=== PATIENT | male | born 1950 | race Caucasian/White ===

== ENCOUNTER 2017-12-10 04:58 | Inpatient (IN) | payer MEDICARE ==
[~2017-12-10] VITALS: Ht 172.7 cm; Wt 126.7 kg
--- NOTE | ~2017-12-10 | EC ---
PATIENT:JEROME JUAREZ DATE OF SERVICE: 12/11/17 SEX: M MEDICAL RECORD: [id number] DATE OF : 46 LOCATION:D.M2 D.211 AGE OF PATIENT: 67 ADMISSION DATE: 12/11/17 REFERRING PHYSICIAN: INTERPRETING PHYSICIAN: TOREY WEBB MD ECHOCARDIOGRAM REPORT ECHO CHARGES 4 ECHO COMPLETE Date: 12/10 CLINICAL DIAGNOSIS: CHF ECHOCARDIOGRAPHIC MEASUREMENTS (adult normal given) AC root (d.<3.7cm) 4.3 cm LV Septum d (<1.2 cm> 1.7 cm Valve Excursion 2.2 cm LV Septum (systole) 2.3 cm Left Atria (s.<4.0cm> 5.1 cm LVPW d(<1.2cm) 1.7 cm RV (d.<2.3cm) 4.3 cm LVPW (sytole) 1.8 cm LV diastole(<5.6CM) 4.3 cm MV E-F(>70mm/sec) cm LV systole 3.0 cm LVOT Diameter 2.0 cm MV exc.(>10mm) 1.6 cm Est.ejection fraction (50-75%) % DOPPLER: LVIT cm/sec A 55.0 cm/sec E 97.0 cm/sec LA cm/sec RVSP 35 mmHg LVOT 85 cm/sec AOP1/2T m/s Asc. Ao 111 cm/sec RVOT cm/sec RA cm/sec PA cm/sec AV Gradient Peak 4.94 mmHg AV Mean 2.31 mmHg AV Area 3.4 cm MV Gradient Peak mmHg MV Mean mmHg MV Area cm COMMENTS: Bank Credit Card Collection Clerk: 2 FEDERICO MACDONALD Pockets And Pieces Necktie Operator: 4 Dr. Webb TAPE# PACS Pericardial Effusion N DATE OF SERVICE: PROCEDURE: Transthoracic echocardiogram. FINDINGS: 1. Left ventricle was difficult to visualize. The overall function appears to be preserved 55% to 60%. There is left ventricular hypertrophy. Inflow characteristics are unable to be processed because of atrial fibrillation. 2. The left atrium is severely dilated. 3. The aortic valve is grossly normal. ECHOCARDIOGRAM REPORT [id number] JEROME JUAREZ 4. There is mitral annular calcification. Mitral valve overall appears to be structurally normal. There is no evidence of significant mitral regurgitation. 5. The right atrium and the right ventricle are mildly dilated. There is pacer artifact seen through. This is overall a very difficult echocardiogram. There are no gross abnormalities on valvular functional status. TRANSINT:[id number] Voice Confirmation ID: [id number] DOCUMENT ID: [id number] TOREY WEBB MD at 1029 CC: [id number] DICTATION DATE: 12/14/17 0739 RETURNER: 12/14/17 0920 DIS IN 12/13/17 [place] [id number] [place] [id number]
--- NOTE | ~2017-12-10 | HEMODYNAMI ---
PATIENT:JEROME JUAREZ MEDICAL RECORD: [id number] : 46 LOCATION:[address] ADMISSION DATE: 12/11/17 Generatedon:12/12/20178:20 Patient name: JEROME JUAREZ Patient #: [id number] SSN: : 1950 Date of study: 12/12/2017 Page: Of Hemodynamic Procedure Report Patient Data Patient Demographics Procedure consent was obtained First Name: JEROME Gender: Male Last Name: LARRY : 1950 Patient #: [id number] Age: 67 year(s) Race: Unknown Additional ID: [id number] Contact details Address: [address] [place] [address] State: [place] City: [facility] Zip code: [address] Past Medical History Allergies Allergen Reaction Date Comments Reported Other allergy 12/12/2017 Lasix Admission Admission Data Admission Date: 12/11/2017 Admission Time: 15:52 Room #: 2115 Procedure Procedure Types Cath Procedure Diagnostic Procedure LHC [facility] w/Coronaries Sedation Charges Moderate Sedation up to 15 minutes PCI Procedure Coronary Stent Coronary Stent Initial Procedure Description Procedure Date Procedure Date: 12/12/2017 Procedure Start Time: 7:47 Procedure End Time: 8:19 Procedure Staff Name Function Gasper Stanley MD Performing Physician Rekha Joseph RT Monitor Michael Pratt RN Nurse Bronwyn Aj RT Scrub Procedure Data Cath Procedure Fluoroscopy Diagnostic fluoroscopy Total fluoroscopy Time: time: 10.6 min 10.6 min Diagnostic fluoroscopy Total fluoroscopy dose: dose: 2215 mGy 2215 mGy Contrast Material Contrast Material Type Amount (ml) Isovue 370 95 Entry Location Entry Primary Successful Side Size Upsize Upsize Entry Closure Pascal ccessful Closure Location (Fr) 1 (Fr) 2 (Fr) Remarks Device Remarks Radial Right 6 Fr Mechanical artery Short Compression Estimated blood loss: 10 ml Diagnostic catheters Device Type Used For End Catheter Placement DIAGNOSTIC Mario 110cm Right Coronary 5Fr catheter ([id number]) Angiography DIAGNOSTIC [place] 110cm 5 Left Coronary Fr catheter ([id number]) Angiography Procedure Complications No complications Procedure Medications Medication Administration Route Dosage 0.9% NaCl I.V. 100 ml/hr Oxygen etCO2 Nasal cannula 2 l/min Heparin Flush Bag added to field 2 bags (1000units/500ml NS) Lidocaine 2% added to field 20 Radial Cocktail added to field 1 syringe (Verapomil 2mg/Nitro 400mcg/Heparin 1500units) Versed I.V. 1 mg Fentanyl I.V. 50 mcg Radial Cocktail I.A. 1 syringe (Verapomil 2mg/Nitro 400mcg/Heparin 1500units) Angiomax (bolus) I.V. 19 ml Angiomax Drip I.V. drip 44 ml/hr (250mg/50ml NS) (Standard) Angiomax Drip I.V. drip 44 ml/hr (250mg/50ml NS) (Standard) Plavix P.O. 300 mg Hemodynamics Rest Heart Rate: 60 (bpm) Snapshots Pre Cath Intra NCS Post Cath Vital Signs Time Heart Resp SPO2 etCO2 NIBP (mmHg) Rhythm Pain Sedation Rate (ipm) (%) (mmHg) Status Level (bpm) 7:40:34 60 16 100 46.9 135/79(112) Paced 0 (11) 10(A) , No pain 7:45:19 60 16 97 48.4 126/70(97) Paced 0 (11) 10(A) , No pain 7:50:02 60 13 96 26.8 74/35(54) Paced 0 (11) 10(A) , No pain 7:54:44 60 12 92 32 121/70(96) Paced 0 (11) 10(A) , No pain 7:59:27 60 13 91 43.2 137/73(92) Paced 0 (11) 10(A) , No pain 8:04:10 60 13 92 49.9 129/77(100) Paced 0 (11) 9(A) , No pain 8:08:54 60 13 93 38.7 122/73(95) Paced 0 (11) 9(A) , No pain 8:13:37 60 13 95 48.4 117/70(94) Paced 0 (11) 9(A) , No pain 8:18:17 60 14 94 46.2 122/74(100) Paced 0 (11) 10(A) , No pain Medications Time Medication Route Dose Verified Delivered Reason Note s Effectiveness by by 7:39:51 0.9% NaCl I.V. 100 Michael Michael Per physician ml/hr Santa Pratt RN RN 7:39:59 Oxygen etCO2 2 l/min Michael Michael Per physician Nasal Santa Pratt cannula RN RN 7:40:12 Heparin Flush added 2 bags Michael Michael used for Bag to Lorigan Santa procedure (1000units/500ml field RN RN NS) 7:40:22 Lidocaine 2% added 20ml Michael Michael for local to vial Lorigan Lorigan anesthetic field RN RN 7:40:38 Radial Cocktail added 1 Michael Michael used for (Verapomil to syringe Lorigan Lorigan procedure 2mg/Nitro field RN RN 400mcg/Heparin 1500units) 7:45:22 Versed I.V. 1 mg Michael Michael for sedation Santa Pratt RN RN 7:45:32 Fentanyl I.V. 50 mcg Michael Michael for sedation Santa Pratt RN RN 7:47:58 Radial Cocktail I.A. 1 Michael Gasper for (Verapomil syringe Santa Norred MD vasodilation 2mg/Nitro RN 400mcg/Heparin 1500units) 8:07:15 Angiomax (bolus) I.V. 19 ml Michael Michael for Lorigan Lorigan anticoagulation RN RN 8:07:32 Angiomax Drip I.V. 44 Michael Michael for (250mg/50ml NS) drip ml/hr Lorigan Lorvictorino anticoagulation (Standard) RN RN 8:15:19 Angiomax Drip I.V. 44 Michael Michael to sharp's (250mg/50ml NS) drip ml/hr Lorigan Lorigan (Standard) RN RN 8:19:05 Plavix P.O. 300 mg Michael Michael for Santa Pratt antiplatelet RN RN therapy Procedure Log Time Note 7:20:31 Bronwyn Aj RT(R) sent for patient. Start room use. 7:20:33 Time tracking: Regular hours (M-F 7:00 - 5:00) 7:20:37 Plan of Care:Hemodynamics will remain stable., Cardiac rhythm will remain stable., Comfort level will be maintained., Respiratory function will remain adequate., Patient/ family verbilizes understanding of procedure., Procedure tolerated without complication., Recovers from procedure without complications.. 7:30:11 Patient received from PCU to CCL 1 Alert and oriented. Tansferred to table in Supine position. 7:30:12 Warm blankets applied, and tavia hugger turned on for patient comfort. 7:30:13 Correct patient and procedure confirmed by team. 7:30:14 Signed procedure consent form obtained from patient. 7:30:15 ECG and BP/O2 sat monitors applied to patient. 7:30:16 Full Disclosure recording started 7:39:35 Vital chart was started 7:39:51 0.9% NaCl 100 ml/hr I.V. was administered by Michael Pratt RN; Per physician; 7:39:59 Oxygen 2 l/min etCO2 Nasal cannula was administered by Michael Pratt RN; Per physician; 7:40:12 Heparin Flush Bag (1000units/500ml NS) 2 bags added to field was administered by Michael Pratt RN; used for procedure; 7:40:22 Lidocaine 2% 20ml vial added to field was administered by Michael Pratt RN; for local anesthetic; 7:40:38 Radial Cocktail (Verapomil 2mg/Nitro 400mcg/Heparin 1500units) 1 syringe added to field was administered by Michael Pratt RN; used for procedure; 7:42:25 Baseline sample Acquired. 7:42:31 Rhythm: paced 7:42:47 H&P Date Dictated: 12/10/2017 Within 30 days and on chart.. 7:42:48 Pre-procedure instructions explained to patient. 7:42:49 Pre-op teaching completed and patient verbalized understanding. 7:42:51 Family in patients room. 7:42:53 Patient NPO since Midnight. 7:43:02 Patient allergic to Other allergyLasix 7:43:04 Is the patient allergic to Iodine/contrast media? No. 7:43:05 Is patient on blood thinner?Yes 7:43:08 ACC The patient was administered the following blood thiners within the last 24 hours: ACCAspirin, ACCPlavix 7:43:10 Patient diabetic? No. 7:43:35 Previous problem with sedation/anesthesia? No ? 7:43:36 Snore? Yes 7:43:37 Sleep apnea? No 7:43:38 Deviated septum? No 7:43:38 Opens mouth fully? Yes 7:43:39 Sticks out tongue? Yes 7:43:43 Airway obstruction? Yes COPD 7:43:46 Dentures? Yes In 7:43:49 Pre procedure: right dorsailis pedis pulse 2+ Normal; easily identifiable; not easily obliterated 7:43:53 Modified Patricio's test Ulnar < 7 seconds 7:43:55 Patient pain scale 0/10 ?. 7:44:10 IV patent on arrival in right forearm with 0.9% NaCl at [facility]. 7:44:13 Lab results completed and on chart. 7:44:18 Right Radial & Right Groin area was prepped with chlora-prep and draped in sterile fashion 7:44:19 Alarms reviewed by R. N. 7:44:19 Sharps counted by scrub and verified by R.N. 7:44:22 Use device set Radial Dx or PCI 7:44:24 ACIST Syringe (18919) opened to sterile field. 7:44:24 Medline Cath Pack ([id number]) opened to sterile field. 7:44:25 Bag Decanter (2002S) opened to sterile field. 7:44:25 DIAGNOSTIC WIRE .035 260cm J wire (442750) opened to sterile field. 7:44:26 ACIST Hand Control (01124) opened to sterile field. 7:44:26 ACIST Manifold (97511) opened to sterile field. 7:44:27 Tegaderm 4 x 4 (1626W) opened to sterile field. 7:44:27 MBrace Wrist Support ([id number]) opened to sterile field. 7:44:28 SHEATH 6Fr Prelude Radial ([id number]) opened to sterile field. 7:44:36 Final Timeout: patient, procedure, and site verified with staff and physician. All members of the team are in agreement. 7:44:39 Right Radial site verified by team. 7:44:44 Physical assessment completed. ASA score P 3 - A patient with severe systemic disease as per Gasper Stanley MD. 7:44:47 Sedation plan: IV Moderate Sedation Medication:Versed, Fentanyl 7:45:22 Versed 1 mg I.V. was administered by Michael Pratt RN; for sedation; 7:45:32 Fentanyl 50 mcg I.V. was administered by Michael Pratt RN; for sedation; 7:47:31 Procedure started. 7:47:34 Local anesthetic to right radial artery with Lidocaine 2% by Gasper Stanley MD.INITIAL ACCESS ONLY 7:47:43 A 6 Fr Short sheath was inserted into the Right Radial artery 7:47:58 Radial Cocktail (Verapomil 2mg/Nitro 400mcg/Heparin 1500units) 1 syringe I.A. was administered by Gasper Stanley MD; for vasodilation; 7:48:50 A DIAGNOSTIC Mario 110cm 5Fr catheter (430111) was advanced over the wire and used for Right Coronary Angiography. 7:52:33 Baseline sample Acquired. 7:56:57 Catheter removed. 7:57:02 A DIAGNOSTIC [place] 110cm 5 Fr catheter (675088) was advanced over the wire and used for Left Coronary Angiography. 8:00:42 Catheter removed. 8:00:59 Use device set NORRED PCI 8:01:07 INFLATOR Merit BasixCompak ([id number]) opened to sterile field. 8:01:08 COPILOT Valve Control (5566779) opened to sterile field. 8:01:09 BMW 190cm [place] 2 J wire ([id number]) opened to sterile field. 8:03:28 GUIDE 6FR AR 1.0 catheter ([id number]) opened to sterile field. 8:05:56 6 Fr AR 1.0 guide catheter was inserted over the wire 8:07:11 BMW wire advanced. 8:07:15 Angiomax (bolus) 19 ml I.V. was administered by Michael Pratt RN; for anticoagulation; 8:07:32 Angiomax Drip (250mg/50ml NS) (Standard) 44 ml/hr I.V. drip was administered by Michael Pratt RN; for anticoagulation; 8:12:53 Place stent Inflation Number: 1 A EVERARDO RX 3.0 x 22 stent ([id number]) was prepped and advanced across the R PDA. The stent was deployed at 15 CHERYL for 0:13 (min:sec). 8:13:19 Stent catheter was removed intact over wire. 8:13:20 Wire removed. 8:13:21 Guide catheter removed. 8:13:34 Sheath removed intact; hemostasis achieved with Mechanical Compression to the Right Radial artery. 8:13:36 Procedure ended.(Physican Out) 8:13:56 Fluoroscopy time 10.60 minutes. 8:14:02 Flurop Dose total: 2215 8:14:02 Fluoroscopy dose: 2215 mGy 8:14:09 Contrast amount:Isovue 370 95ml. 8:14:10 Sharps counted by scrub and verified by R.N. 8:14:13 TR band inflated with 13cc of air. 8:14:17 TR BAND Large ([id number]) opened to sterile field. 8:14:20 Insertion/operative site no bleeding no hematoma. 8:14:27 Post right radial artery:stable, clean and dry 8:14:29 Post Procedure Pulses reassessed and unchanged 8:14:44 Post procedure rhythm: unchanged. 8:14:47 Estimated blood loss: 10 ml 8:14:48 Post procedure instruction explained to patient.Patient verbalizes understanding. 8:14:49 Patient needs reinforcement of post procedure teaching. 8:14:55 Procedure type changed to Cath procedure, Diagnostic procedure, LHC, LHC w/Coronaries, Sedation Charges, Moderate Sedation up to 15 minutes, PCI procedure, Coronary Stent, Coronary Stent Initial 8:15:18 Procedure Complication : No complications 8:15:19 Angiomax Drip (250mg/50ml NS) (Standard) 44 ml/hr I.V. drip was administered by Michael Pratt RN; to sharp's; 8:15:56 See physician's report for complete and final results. 8:17:19 Procedure and supply charges have been captured, reviewed, submitted and are correct. 8:18:52 Vital chart was stopped 8:19:05 Plavix 300 mg P.O. was administered by Michael Pratt RN; for antiplatelet therapy; 8:19:23 Report given to PCU. 8:19:35 Patient transfered to PCU with Bed. 8:19:45 Procedure ended. 8:19:45 Full Disclosure recording stopped 8:19:50 End room use (Document Last) Intervention Summary Intervention Notes Time ActionType Lesion and Equipment Used Action# Pressure Duration Attributes 8:12:53 Place stent R PDA EVERARDO RX 3.0 x 1 15 00:13 22 stent ([id number]) Device Usage Item Name Manufacture Quantity Catalog Number Hospital Part Current Minimal Lot# / Charge Number Stock Stock Serial# Code ACIST Syringe Acist 1 19702 163309 049160 638450 20 (26140) [employer] Inc Medline Cath Cardinal 1 [id number] 057081 18049 340928 5 [facility] ([id number]) Bag Decanter Microtek 1 2001S 651053 15408 504368 5 (2001S) Medical Inc. DIAGNOSTIC WIRE [place] 1 247235 285955 219464 778672 30 .035 260cm J wire (118123) ACIST Hand Acist 1 99058 352603 244640 553486 5 Control (17305) [employer] Inc ACIST Manifold Acist 1 47656 046972 842652 305854 5 (78284) [employer] Inc Tegaderm 4 x 4 3M 1 1626W 322152 709812 039784 5 (1626W) MBrace Wrist Advanced 1 140-0250-00 117942 78118 525614 5 Support Vascular ([id number]) Dynamics SHEATH 6Fr Merit 1 [id number] 681864 888314 408880 5 Prelude Radial Medical ([id number]) DIAGNOSTIC Terumo 1 40-5023 262853 634691 045796 5 Mario 110cm 5Fr catheter (588976) DIAGNOSTIC Terumo 1 40-5013 265936 367597 014281 5 [place] 110cm 5 Fr catheter (072962) INFLATOR Merit Merit 1 [id number] 014002 899187 264097 15 [facility] ([id number]) COPILOT Valve Robison 1 1546830 621681 895101 421111 5 Control Vascular (9193449) BMW 190cm [place] 1 [id number] 875346 84192 213693 5 [place] 2 J Vascular wire (6086919Q) GUIDE 6FR AR Medtronic 1 [id number] 049991 95057 422091 1 1.0 catheter (PT3TX42) EVERARDO RX 3.0 x Medtronic 1 [id number] 811019 6787871 090179 5 [id number] 22 stent ([id number]) TR BAND Large Terumo 1 [id number] 568670 800601 757651 40 ([id number]) Signature Audit Freer Stage Time Signature Unsigned Intra-Procedure 12/12/2017 Rekha 8:19:59 AM Counts RT(R) Signatures Monitor : Rekha Signature : Counts RT Date : Time : [address] [place] [address]
[2017-12-10 05:53] LABS: BASOPHILS 0.2 % (0-2); EOSINOPHILS 1.3 % (0-7); HEMATOCRIT 46.9 % (42.0-54.0); HEMOGLOBIN 15.6 g/dL (13.5-17.5); IMMATURE GRANULOCYTES 0.2 % (0-5); LYMPHOCYTES 15.3 % (15-50); MCH 31.5 pg (26.0-34.0); MCHC 33.3 g/dL (31.0-37.0); MCV 94.7 fL (80.0-100.0); MEAN PLATELET VOLUME 10.3 fL (7.4-10.4); MONOCYTES 10.5 % (2-11); NEUTROPHILS 72.5 % (40-80); PLATELET COUNT 226 10x3/uL (130-400); RBC 4.95 10x6/uL (4.20-6.10); RDW 14.2 % (11.5-14.5); WBC 9.3 10x3/uL (4.8-10.8)
[2017-12-10 06:08] LABS: ALBUMIN 3.4 g/dL (3.4-5.0); ALKALINE PHOSPHATASE 104 U/L (46-116); ALT (SGPT) 27 U/L (10-68); BILIRUBIN - TOTAL 0.75 mg/dL (0.2-1.3); CALC OSMOLALITY 290 mosm/kg (275-300); CALCIUM 9.3 mg/dL (8.5-10.1); CARBON DIOXIDE 31.2 mmol/L (21.0-32.0); CHLORIDE - SERUM 104 mmol/L (98-107); CREATININE - SERUM 1.2 mg/dL (0.6-1.3); GLUCOSE 133 mg/dL (74-106); POTASSIUM - SERUM 3.4 mmol/L (3.5-5.1); PROTEIN - SERUM 7.5 g/dL (6.4-8.2); SODIUM 143 mmol/L (136-145); UREA NITROGEN 24 mg/dL (7-18); eGFR NON AFRICAN AMERICAN 64 mL/min (90-120)
[2017-12-10 06:26] LABS: CHOL - HDL RATIO 3.4 ratio (2.3-4.9); CHOLESTEROL, TOTAL 152 mg/dL (0-200); CKMB 1.8 U/L (0.0-3.6); CREATINE KINASE 53 UL (21-232); HDL CHOLESTEROL 45 mg/dL (32-96); LDL CHOLESTEROL 98 mg/dL (0-100); LDL-HDL RATIO 2.2 ratio (1.5-3.5); TRIGLYCERIDE 45 mg/dL (30-200); TROPONIN-I 0.058 ng/mL (0.000-0.060)
[2017-12-10 08:39] VITALS: BP 130/71; BMI 45.7
[2017-12-10 08:41] LABS: TROPONIN-I 0.059 ng/mL (0.000-0.060)
[2017-12-10] MEDS ORDERED: BUMEX 1 MG TAB1 MG PO (09:23)
[2017-12-10] MEDS ORDERED: COUMADIN1 MG PO (09:24)
[2017-12-10] MEDS ORDERED: COREG 3.1253.125 MG PO (09:24)
[2017-12-10] MEDS ORDERED: K-DUR20 MEQ PO (09:24)
[2017-12-10 09:25] VITALS: BP 137/76
[2017-12-10 11:29] LABS: TROPONIN-I 0.055 ng/mL (0.000-0.060)
[2017-12-10 12:37] VITALS: BP 132/63
[2017-12-10 15:25] LABS: INR 1.13 (0.85-1.17); PROTIME 14.1 SECONDS (11.6-15.0)
[2017-12-10 15:27] LABS: D-DIMER-QUANTITATIVE 2.22 ug/mLFEU (0.20-0.54)
[2017-12-10 17:32] VITALS: BP 136/70; BP 181/113
[2017-12-10 20:00] VITALS: BP 137/72
[2017-12-11 04:00] VITALS: BP 142/62
[2017-12-11 06:01] LABS: CALC OSMOLALITY 282 mosm/kg (275-300); CALCIUM 9.1 mg/dL (8.5-10.1); CARBON DIOXIDE 31.4 mmol/L (21.0-32.0); CHLORIDE - SERUM 101 mmol/L (98-107); CREATININE - SERUM 0.9 mg/dL (0.6-1.3); GLUCOSE 116 mg/dL (74-106); POTASSIUM - SERUM 3.6 mmol/L (3.5-5.1); SODIUM 140 mmol/L (136-145); UREA NITROGEN 21 mg/dL (7-18); eGFR NON AFRICAN AMERICAN 89 mL/min (90-120)
[2017-12-11 06:02] LABS: BASOPHILS 0.2 % (0-2); HEMATOCRIT 46.2 % (42.0-54.0); HEMOGLOBIN 15.3 g/dL (13.5-17.5); IMMATURE GRANULOCYTES 0.3 % (0-5); LYMPHOCYTES 18.5 % (15-50); MCH 31.5 pg (26.0-34.0); MCHC 33.1 g/dL (31.0-37.0); MCV 95.3 fL (80.0-100.0); MEAN PLATELET VOLUME 10.8 fL (7.4-10.4); MONOCYTES 8.6 % (2-11); NEUTROPHILS 71.4 % (40-80); PLATELET COUNT 218 10x3/uL (130-400); RBC 4.85 10x6/uL (4.20-6.10); RDW 14.1 % (11.5-14.5)
[2017-12-11 08:00] VITALS: BP 125/61
[2017-12-11 10:34] LABS: BASOPHILS 0.2 % (0-2); CALC OSMOLALITY 284 mosm/kg (275-300); CALCIUM 9.1 mg/dL (8.5-10.1); CARBON DIOXIDE 33.6 mmol/L (21.0-32.0); CHLORIDE - SERUM 100 mmol/L (98-107); CREATININE - SERUM 0.9 mg/dL (0.6-1.3); EOSINOPHILS 1.1 % (0-7); GLUCOSE 166 mg/dL (74-106); HEMATOCRIT 45.3 % (42.0-54.0); HEMOGLOBIN 15.1 g/dL (13.5-17.5); IMMATURE GRANULOCYTES 0.2 % (0-5); LYMPHOCYTES 13.9 % (15-50); MCH 31.9 pg (26.0-34.0); MCHC 33.3 g/dL (31.0-37.0); MCV 95.6 fL (80.0-100.0); MONOCYTES 8.3 % (2-11); NEUTROPHILS 76.3 % (40-80); PLATELET COUNT 190 10x3/uL (130-400); POTASSIUM - SERUM 3.2 mmol/L (3.5-5.1); RBC 4.74 10x6/uL (4.20-6.10); RDW 14.1 % (11.5-14.5); SODIUM 139 mmol/L (136-145); UREA NITROGEN 20 mg/dL (7-18); WBC 9.1 10x3/uL (4.8-10.8); eGFR NON AFRICAN AMERICAN 89 mL/min (90-120)
[2017-12-11 11:02] VITALS: BP 131/68
[2017-12-11 13:44] VITALS: Ht 172.7 cm; Wt 126.7 kg
[2017-12-11 15:31] VITALS: BP 129/64
[2017-12-11 20:24] VITALS: BP 133/71
[2017-12-12 06:14] VITALS: BP 155/77
[2017-12-12 06:40] LABS: BASOPHILS 0.2 % (0-2); EOSINOPHILS 1.4 % (0-7); HEMATOCRIT 45.5 % (42.0-54.0); HEMOGLOBIN 15.5 g/dL (13.5-17.5); IMMATURE GRANULOCYTES 0.3 % (0-5); LYMPHOCYTES 17.3 % (15-50); MCH 32.3 pg (26.0-34.0); MCHC 34.1 g/dL (31.0-37.0); MCV 94.8 fL (80.0-100.0); MEAN PLATELET VOLUME 10.9 fL (7.4-10.4); MONOCYTES 9.5 % (2-11); NEUTROPHILS 71.3 % (40-80); PLATELET COUNT 186 10x3/uL (130-400); WBC 9.3 10x3/uL (4.8-10.8)
[2017-12-12 06:49] LABS: CALC OSMOLALITY 280 mosm/kg (275-300); CALCIUM 9.2 mg/dL (8.5-10.1); CARBON DIOXIDE 33.3 mmol/L (21.0-32.0); CHLORIDE - SERUM 100 mmol/L (98-107); CREATININE - SERUM 0.9 mg/dL (0.6-1.3); SODIUM 139 mmol/L (136-145); UREA NITROGEN 17 mg/dL (7-18); eGFR NON AFRICAN AMERICAN 89 mL/min (90-120)
[2017-12-12 07:02] LABS: GLUCOSE 108 mg/dL (74-106)
[2017-12-12 07:51] VITALS: BP 115/57
[2017-12-12 10:25] VITALS: BP 123/73
[2017-12-12 15:30] VITALS: BP 136/89
[2017-12-12 15:31] VITALS: BP 122/64
[2017-12-12] MEDS ORDERED: PLAVIX75 MG PO (19:06)
[2017-12-12 20:31] VITALS: BP 102/54
[2017-12-13 04:00] VITALS: BP 130/49
[2017-12-13 05:43] VITALS: BP 134/68
[2017-12-13 06:24] LABS: BASOPHILS 0.2 % (0-2); EOSINOPHILS 1.8 % (0-7); HEMOGLOBIN 15.8 g/dL (13.5-17.5); IMMATURE GRANULOCYTES 0.1 % (0-5); LYMPHOCYTES 11.1 % (15-50); MCHC 33.6 g/dL (31.0-37.0); MCV 95.3 fL (80.0-100.0); MONOCYTES 10.9 % (2-11); NEUTROPHILS 75.9 % (40-80); PLATELET COUNT 201 10x3/uL (130-400); RBC 4.93 10x6/uL (4.20-6.10); RDW 14.2 % (11.5-14.5)
[2017-12-13 06:58] LABS: CALC OSMOLALITY 281 mosm/kg (275-300); CALCIUM 9.3 mg/dL (8.5-10.1); CARBON DIOXIDE 30.5 mmol/L (21.0-32.0); CHLORIDE - SERUM 100 mmol/L (98-107); CREATININE - SERUM 0.9 mg/dL (0.6-1.3); GLUCOSE 125 mg/dL (74-106); SODIUM 140 mmol/L (136-145); UREA NITROGEN 18 mg/dL (7-18); eGFR NON AFRICAN AMERICAN 89 mL/min (90-120)
[2017-12-13 07:13] LABS: POTASSIUM - SERUM 3.5 mmol/L (3.5-5.1)
[2017-12-13 07:44] VITALS: BP 133/67
[2017-12-13] MEDS ORDERED: BAYER CHEWABLE81 MG PO (11:16)
[2017-12-13] MEDS ORDERED: LIPITOR20 MG PO (11:16)
== END 2017-12-13 15:09 | disposition home or self-care (01) | DRG 246 ==
LOC: EDBD 04:58 → D.ER 04:58 → D.M2 06:58 → OBSVTIME 06:58 → D.M2 06:58 → D.SDCHOLD 12-13 10:55 → D.M2 12-13 10:55
PROVIDERS: Family Medicine; Internal Medicine Cardiovascular Disease; Internal Medicine Nephrology
PROC: B2111ZZ Fluoroscopy of Multiple Coronary Arteries using Low Osmolar Contrast (ICD-10-PCS; 2017-12-12)
PROC: B2151ZZ Fluoroscopy of Left Heart using Low Osmolar Contrast (ICD-10-PCS; 2017-12-12)
PROC: 027135Z Dilation of Coronary Artery, Two Arteries with Two Drug-eluting Intraluminal Devices, Percutaneous Approach (ICD-10-PCS; principal; 2017-12-12 13:00)
PROC: 4A023N7 Measurement of Cardiac Sampling and Pressure, Left Heart, Percutaneous Approach (ICD-10-PCS; 2017-12-12 13:00)
DX: I21.4 Non-ST elevation (NSTEMI) myocardial infarction (principal); I50.33 Acute on chronic diastolic (congestive) heart failure; I25.110 Atherosclerotic heart disease of native coronary artery with unstable angina pectoris; I11.0 Hypertensive heart disease with heart failure; E11.9 Type 2 diabetes mellitus without complications; J44.9 Chronic obstructive pulmonary disease, unspecified; K21.9 Gastro-esophageal reflux disease without esophagitis; I48.91 Unspecified atrial fibrillation; E87.6 Hypokalemia; Z95.0 Presence of cardiac pacemaker

== ENCOUNTER 2019-07-27 00:37 | Emergency (ER) | payer MEDICARE ==
[~2019-07-27] VITALS: Ht 172.7 cm; Wt 113.6 kg
[~2019-07-27 00:37] MED LIST: BAYER CHEWABLE81 MG PO; BUMEX 1 MG TAB1 MG PO; COREG 3.1253.125 MG PO; COUMADIN1 MG PO; K-DUR20 MEQ PO; LIPITOR20 MG PO; PLAVIX75 MG PO
[2019-07-27 00:40] VITALS: Ht 172.7 cm; Wt 113.6 kg
[2019-07-27 03:06] VITALS: BP 125/53
== END 2019-07-27 03:06 ==
LOC: D.ER 00:37
DX: S00.83XA Contusion of other part of head, initial encounter (principal); S40.011A Contusion of right shoulder, initial encounter; W06.XXXA Fall from bed, initial encounter; Y93.9 Activity, unspecified; Y92.9 Unspecified place or not applicable; E11.9 Type 2 diabetes mellitus without complications; Z95.0 Presence of cardiac pacemaker; I11.0 Hypertensive heart disease with heart failure; I50.9 Heart failure, unspecified

== ENCOUNTER → 2020-10-21 16:17 | Outpatient (CLI) | payer MEDICARE ==
[2019-07-27 00:40] VITALS: BMI 38.1
[2020-10-21 17:08] LABS: BILIRUBIN NEGATIVE (NEGATIVE); KETONE NEGATIVE (NEGATIVE); NITRITE NEGATIVE (NEGATIVE); UROBILINOGEN NORMAL mg/dL (< 2)
== END | disposition home or self-care (01) ==
LOC: D.LABREF 16:17
PROVIDERS: ATTEND Family Medicine
DX: R79.9 Abnormal finding of blood chemistry, unspecified (principal)

== ENCOUNTER → 2020-10-23 12:48 | Outpatient (CLI) | payer MEDICARE ==
[2019-07-27 00:40] VITALS: BMI 38.1
[2020-10-23 13:03] LABS: BASOPHILS 0.1 % (0-2); EOSINOPHILS 1.6 % (0-7); HEMATOCRIT 44.4 % (42.0-54.0); HEMOGLOBIN 14.5 g/dL (13.5-17.5); IMMATURE GRANULOCYTES 0.2 % (0-5); LYMPHOCYTE ABS# 1.27 10x3/uL (1.32-3.57); LYMPHOCYTES 10.7 % (15-50); MCH 30.9 pg (26.0-34.0); MCHC 32.7 g/dL (31.0-37.0); MCV 94.5 fL (80.0-100.0); MEAN PLATELET VOLUME 11.6 fL (7.4-10.4); MONOCYTES 5.6 % (2-11); NEUTROPHIL ABS# 9.72 10x3/uL (1.78-5.38); NEUTROPHILS 81.8 % (40-80); PLATELET COUNT 222 10x3/uL (130-400); WBC 11.9 10x3/uL (4.8-10.8)
[2020-10-23 13:28] LABS: CALC OSMOLALITY 290 mosm/kg (275-300); CALCIUM 8.7 mg/dL (8.5-10.1); CARBON DIOXIDE 30.3 mmol/L (21.0-32.0); CHLORIDE - SERUM 103 mmol/L (98-107); CREATININE - SERUM 0.7 mg/dL (0.6-1.3); GLUCOSE 94 mg/dL (74-106); POTASSIUM - SERUM 3.8 mmol/L (3.5-5.1); SODIUM 141 mmol/L (136-145); UREA NITROGEN 41 mg/dL (7-18); eGFR NON AFRICAN AMERICAN > 90 mL/min (90-120)
== END | disposition home or self-care (01) ==
LOC: D.LABREF 12:48
PROVIDERS: ATTEND Family Medicine
DX: R79.9 Abnormal finding of blood chemistry, unspecified (principal)

== ENCOUNTER 2020-11-27 19:49 | Emergency (ER) | payer MEDICARE ==
[2020-11-27 19:55] VITALS: Ht 172.7 cm
[2020-11-27 21:35] LABS: BASOPHILS 0.2 % (0-2); EOSINOPHILS 3.2 % (0-7); HEMOGLOBIN 10.8 g/dL (13.5-17.5); IMMATURE GRANULOCYTES 0.2 % (0-5); LYMPHOCYTE ABS# 1.66 10x3/uL (1.32-3.57); LYMPHOCYTES 19.5 % (15-50); MCH 31.4 pg (26.0-34.0); MCHC 31.8 g/dL (31.0-37.0); MCV 98.8 fL (80.0-100.0); MEAN PLATELET VOLUME 10.1 fL (7.4-10.4); MONOCYTES 9.3 % (2-11); NEUTROPHIL ABS# 5.77 10x3/uL (1.78-5.38); NEUTROPHILS 67.6 % (40-80); PLATELET COUNT 212 10x3/uL (130-400); RBC 3.44 10x6/uL (4.20-6.10); RDW 15.2 % (11.5-14.5); WBC 8.5 10x3/uL (4.8-10.8)
[2020-11-27 21:43] LABS: APTT 45.1 SECONDS (22.8-39.4); INR 2.24 (0.85-1.17)
[2020-11-27 21:46] LABS: CALC OSMOLALITY 287 mosm/kg (275-300); CALCIUM 8.5 mg/dL (8.5-10.1); CARBON DIOXIDE 31.6 mmol/L (21.0-32.0); CHLORIDE - SERUM 103 mmol/L (98-107); CREATININE - SERUM 0.8 mg/dL (0.6-1.3); GLUCOSE 128 mg/dL (74-106); POTASSIUM - SERUM 3.5 mmol/L (3.5-5.1); SODIUM 142 mmol/L (136-145); UREA NITROGEN 21 mg/dL (7-18); eGFR NON AFRICAN AMERICAN > 90 mL/min (90-120)
[2020-11-27 21:52] LABS: ALBUMIN 2.6 g/dL (3.4-5.0); ALKALINE PHOSPHATASE 132 U/L (30-120); ALT (SGPT) 29 U/L (10-68); BILIRUBIN - TOTAL 0.38 mg/dL (0.2-1.3); PROTEIN - SERUM 6.4 g/dL (6.4-8.2)
[2020-11-27 22:14] LABS: BILIRUBIN NEGATIVE (NEGATIVE); KETONE NEGATIVE (NEGATIVE); NITRITE NEGATIVE (NEGATIVE); UROBILINOGEN NORMAL mg/dL (< 2)
[2020-11-28 03:18] VITALS: BP 123/70
== END 2020-11-27 23:45 ==
LOC: D.ER 19:49
PROVIDERS: Emergency Medicine
DX: S00.81XA Abrasion of other part of head, initial encounter (principal); W19.XXXA Unspecified fall, initial encounter; Y93.9 Activity, unspecified; Y92.129 Unspecified place in nursing home as the place of occurrence of the external cause; Z79.01 Long term (current) use of anticoagulants; Z86.73 Personal history of transient ischemic attack (TIA), and cerebral infarction without residual deficits; E11.9 Type 2 diabetes mellitus without complications; Z95.0 Presence of cardiac pacemaker

== ENCOUNTER → 2021-01-11 22:22 | Outpatient (CLI) | payer MEDICARE ==
[2020-11-27 19:55] VITALS: BMI 38.1
== END | disposition home or self-care (01) ==
LOC: D.LABREF 22:22
PROVIDERS: ATTEND Family Medicine
DX: E11.9 Type 2 diabetes mellitus without complications (principal)